=== PATIENT | female | born 1965 | race Caucasian/White ===

== ENCOUNTER 2018-10-19 19:15 | Emergency (ER) | payer SELFPAY ==
[~2018-10-19] VITALS: Ht 152.4 cm; Wt 68.9 kg
[2018-10-19 19:21] VITALS: BP 181/85
--- NOTE | 2018-10-19 19:36 | NUR ---
PT PRESENTED TO THE ED WITH C/O LOWER ABD PAIN. PT STATES SHE STARTED HER MENSTRATION TODAY, WHEN SHE TOOK A SHOWER SHE WAS NOT BLEEDING ANYMORE BUT SHE IS STILL HAVING INTERMITTENT CRAMPING PAIN EVERY HOUR, HER PERVIOUS PERIOD WAS IN AUGUST. DENIES TRAUMA OR FALLS. + NAUSEA. DENIES V/D, CP, SOB, LOC. SKIN IS PINK/WARM/DRY; AAOX4 WITH EVEN AND STEADY GAIT; LUNGS CLEAR BL; HR EVEN AND REGULAR; PT DENIES ANY FEVER OR CHILLS; VSS; PATIENT POSITIONED FOR COMFORT; HOB ELEVATED; BEDRAILS UP X2; BED DOWN. ER MD MADE AWARE OF PT STATUS. PMH: DENIES RX: DENIES
--- NOTE | 2018-10-19 19:58 | NUR ---
Rojelio jacobson in [facility] - 10/19/18 at [address] Aldana evaluating patient at bedside.
--- NOTE | 2018-10-19 19:58 | NUR ---
DR. MONTALVO AT BEDSIDE.
[2018-10-19] MEDS ORDERED: MORPHINE SULFATE 4 MG/ML SYR IVP ONE (20:05)
[2018-10-19] MEDS ORDERED: ONDANSETRON 4 MG/2 ML VIAL IVP ONE (20:05)
[2018-10-19 20:24] LABS: BASOPHILS % (AUTO) 0.1 % (0.0-2.0); EOSINOPHILS # (AUTO) 0.2 K/uL (0-0.4); HEMATOCRIT 39.9 % (36-48); HEMOGLOBIN 13.2 g/dL (12.0-16.0); LYMPHOCYTES # (AUTO) 3.1 K/uL (2.5-16.5); LYMPHOCYTES % (AUTO) 31.2 % (20.5-51.1); MEAN CORPUSCULAR HEMOGLOBIN 29 pg (27-31); MEAN CORPUSCULAR HGB CONC 33 g/dL (33-37); MEAN CORPUSCULAR VOLUME 87.9 fL (80-94); MONOCYTES # (AUTO) 0.7 K/uL (0.8-1.0); MONOCYTES % (AUTO) 6.7 % (1.7-9.3); NEUTROPHILS # (AUTO) 5.9 K/uL (1.8-7.7); PLATELET COUNT (AUTO) 219 K/uL (140-450); RED BLOOD CELL COUNT(AUTO) 4.54 MIL/uL (4.20-5.40); RED CELL DISTRIBUTION WIDTH 13.5 % (11.6-13.7); WHITE BLOOD COUNT (AUTO) 9.8 K/uL (4.8-10.8)
[2018-10-19 20:25] LABS: APPEARANCE,URINE CLEAR (CLEAR); BILIRUBIN,URINE NEGATIVE (NEGATIVE); BLOOD, URINE 3+ (NEGATIVE); COLOR,URINE YELLOW (YELLOW); LEUKOCYTE ESTERASE ,URINE NEGATIVE (NEGATIVE); NITRITE, URINE NEGATIVE (NEGATIVE); UGLUCOSE NEGATIVE (NEGATIVE)
--- NOTE | 2018-10-19 20:25 | NUR ---
PT TAKEN TO CT
[2018-10-19 20:31] LABS: RBC,URINE 11-20 (MOD) /HPF (0-5); WBC,URINE 0-5 (RARE) /HPF (0-5)
[2018-10-19 20:46] LABS: ALBUMIN 3.4 g/dL (3.4-5.0); ANION GAP 6.8 (8-16); CARBON DIOXIDE 29.8 mmol/L (21-32); POTASSIUM 3.6 mmol/L (3.5-5.1); TOTAL BILIRUBIN 0.3 mg/dL (0.0-1.0)
[2018-10-19 21:54] VITALS: BP 148/95
--- NOTE | 2018-10-19 21:54 | NUR ---
Patient discharged with v/s stable. Written and verbal after care instructions given and explained. Patient alert, oriented and verbalized understanding of instructions. Ambulatory with steady gait. All questions addressed prior to discharge. ID band removed. Patient advised to follow up with PMD. Rx of norco, motrin, and zofran given. Patient educated on indication of medication including possible reaction and side effects. Opportunity to ask questions provided and answered.
== END 2018-10-19 21:54 | disposition home or self-care (01) ==
LOC: MED 19:15
DX: N85.8 Other specified noninflammatory disorders of uterus (principal)
CPT/HCPCS: 36415; 74176; 80053; 81001; 83690; 85025; 96372; 99284; J2270; J2405